=== PATIENT | female | born 1955 | race Caucasian/White ===

== ENCOUNTER → 2017-03-16 | Outpatient (CLI) | payer OTHER | LOC: FIMAGING 13:49 | PROVIDERS: ATTEND Obstetrics & Gynecology Gynecology | DX: Z12.31 Encounter for screening mammogram for malignant neoplasm of breast (principal) | CPT/HCPCS: G0202 ==

== ENCOUNTER → 2018-03-31 | Outpatient (CLI) | payer OTHER | END | disposition home or self-care (01) | LOC: FIMAGING 14:25 | PROVIDERS: ATTEND Obstetrics & Gynecology Gynecology | DX: Z12.31 Encounter for screening mammogram for malignant neoplasm of breast (principal) ==

== ENCOUNTER 2018-08-05 06:21 | Day surgery (SDC) | payer OTHER ==
--- NOTE | 2018-08-04 10:18 | CPEKG ---
Test Reason : PRE-OP TESTING HX OF SVT Blood Pressure : / mmHG Vent. Rate : 057 BPM Atrial Rate : 057 BPM P-R Int : 145 ms QRS Dur : 105 ms QT Int : 469 ms P-R-T Axes : 013 047 026 degrees QTc Int : 457 ms Sinus rhythm artifact noted Confirmed by Ortiz Osorio ([id number]) on 08/04/2018 10:18:29 AM Referred By: Maddy Rodriguez Confirmed By:Ortiz Osorio
[2018-08-05] MEDS ORDERED: MIDAZOLAM 2 MG/2 ML VIAL IVP ONE (06:47)
--- NOTE | 2018-08-05 06:48 | PDANEPAE ---
ANE Past Medical History - Cardiovascular History Hx Hypertension: No Hx Arrhythmias: Yes Hx Chest Pain: No Hx Coronary Artery / Peripheral Vascular Disease: No Hx CHF / Valvular Disease: No Hx Palpitations: No Cardiovascular History Comment: hx of SVT. hasn't seen a adjustment examiner since Dr. [place] - Pulmonary History Hx COPD: No Hx Asthma/Reactive Airway Disease: No Hx Recent Upper Respiratory Infection: No Hx Oxygen in Use at Home: No Hx Sleep Apnea: No Sleep Apnea Screening Result - Last Documented: Negative Pulmonary History Comment: lingering cough was seen by pulmonology - Neurologic History Hx Cerebrovascular Accident: No Hx Seizures: No Hx Dementia: No - Endocrine History Hx Diabetes: No Endocrine History Comment: hypothyroidism - Renal History Hx Renal Disorders: No - Liver History Hx Hepatic Disorders: No - Neurological & Psychiatric Hx Hx Neurological and Psychiatric Disorders: No - Cancer History Hx Cancer: No - Congenital Disorder History Hx Congenital Disorders: No - GI History Hx Gastrointestinal Disorders: No - Other Health History Other Health History: none - Chronic Pain History Chronic Pain: No - Surgical History Prior Surgeries: left shoulder scope. appy as child ANE Review of Systems Review of Systems: - Exercise capacity METS (RN): 4 METS ANE Patient History - Allergies Allergies/Adverse Reactions: No Known Allergies Allergy (Verified 08/05/18 07:13) - Home Medications Home Medications: ARMOUR THYROID 07/29/18 [Last Taken Unknown] Estradiol 07/29/18 [Last Taken Unknown] Levothyroxine 07/29/18 [Last Taken Unknown] Lipitor 07/29/18 [Last Taken Unknown] Progesterone 07/29/18 [Last Taken Unknown] - Smoking Hx Smoking Status: Former smoker - Family Anes Hx Family Hx Anesthesia Complications: none ANE Labs/Vital Signs - Vital Signs Height: 167.64 cm Weight: 72.575 kg ANE Physical Exam - Airway Neck exam: FROM Mallampati Score: Class 1 Mouth exam: normal dental/mouth exam - Pulmonary Pulmonary: clear to auscultation - Cardiovascular Cardiovascular: regular rate and rhythym - ASA Status ASA Status: II ANE Anesthesia Plan Anesthesia Plan: GA w LMA
[2018-08-05] MEDS ORDERED: LR 1,000 ML IV ONE (07:40)
[2018-08-05] MEDS ORDERED: PROPOFOL 200 MG/20 ML VIAL ONE (07:44)
[2018-08-05] MEDS ORDERED: fentaNYL 100 MCG/2 ML INJ ONE (07:44)
--- NOTE | 2018-08-05 07:59 | PDHPUP ---
History & Physical Update H&P update statement: This history and physical update is based on an assessment of the patient which was completed after admission or registration (within 24 hours), but prior to the surgery/procedure. H&P update: H&P reviewed & patient examined, no change in patient's condition since H&P completed
[2018-08-05] MEDS ORDERED: METOCLOPRAMIDE 10 MG/2 ML VIAL ONE (08:06)
[2018-08-05] MEDS ORDERED: KETOROLAC 30 MG/1 ML SDV ONE (08:15)
[2018-08-05] MEDS ORDERED: ONDANSETRON 4 MG/2 ML VIAL ONE (08:15)
[2018-08-05] MEDS ORDERED: DEXAMETHASONE 4 MG/ML VIAL ONE (08:15)
[2018-08-05] MEDS ORDERED: LR 500 ML IV PRN (08:37)
[2018-08-05] MEDS ORDERED: HYDROCODONE/APAP 5/325 TAB PO PRN (08:37)
[2018-08-05] MEDS ORDERED: ALBUTEROL 3 ML DEYVIAL IH PRN (08:37)
[2018-08-05] MEDS ORDERED: MEPERIDINE 25 MG/0.5 ML AMP IVP PRN (08:37)
[2018-08-05] MEDS ORDERED: fentaNYL 100 MCG/2 ML INJ IVP PRN (08:37)
[2018-08-05] MEDS ORDERED: PROMETHAZINE HCL 25 MG/ML INJ IVP PRN (08:37)
[2018-08-05] MEDS ORDERED: oxyCODONE IR 5 MG TAB PO PRN (08:37)
[2018-08-05] MEDS ORDERED: ONDANSETRON 4 MG/2 ML VIAL IVP PRN (08:37)
[2018-08-05] MEDS ORDERED: NALOXONE HCL 0.4 MG/ML INJ IVP PRN (08:37)
[2018-08-05] MEDS ORDERED: HYDROmorphONE/DILAUDID 1 MG/ML INJ IVP PRN (08:37)
--- NOTE | 2018-08-05 09:12 | POSTOPPROG ---
Post Op Note Date of Operation: 08/05/18 Surgeon: Maddy Rodriguez Anesthesiologist: Leeann Spencer MD Anesthesia: LMA Pre-op Diagnosis: PMB , uterine fibroids Post-op Diagnosis: same Indication: same Procedure: H/S myomectomy Findings: lower uterine segment fibroid Inf/Abcess present in the surg proc area at time of surgery?: No EBL: Minimal Complications: none Specimen(s): uterine fibroid tissue
--- NOTE | 2018-08-05 09:42 | POSTANESTH ---
Post Anesthetic Evaluation Cardiovascular Status: Normal, Stable Respiratory Status: Normal, Stable Level of Consciousness/Mental Status: Can Participate in Eval Pain Control: Adequate, Prn Tx Ordered Nausea/Vomiting Control: Adequate, Prn Tx Ordered Complications Possibly Related to Anesthesia: None Noted
[2018-08-05 10:11] VITALS: BP 109/67
--- NOTE | 2018-08-05 10:58 | GOP ---
[f rep st] OPERATIVE REPORT DATE OF OPERATION: 08/05/2018 SURGEON: Maddy Rodriguez MD ANESTHESIA: General with LMA. ANESTHESIOLOGIST: Leeann Spencer MD. PREOPERATIVE DIAGNOSIS: 1. Postmenopausal bleeding. 2. Submucosal fibroids. POSTOPERATIVE DIAGNOSIS: 1. Postmenopausal bleeding. 2. Submucosal fibroids. PROCEDURE PERFORMED: Hysteroscopic myomectomy. FINDINGS: There was a prominent lower uterine segment submucosal fibroid measuring about 1.5 x 2 cm; otherwise, normal tubal ostia and no other abnormal findings on CT. . ESTIMATED BLOOD LOSS: Minimal. INDICATIONS: Patient is a 62-year-old on hormone replacement therapy, has had intermittent bleeding over the last 6 to 8 months and an endometrial biopsy was negative. The bleeding has continued and u ltrasound done March 2018 showed a likely large submucosal fibroid plus blood clot in the uterus. The patient desires definitive treatment. DESCRIPTION OF PROCEDURE: With informed consent signed, patient taken to the operating room and [facility] ed under general anesthesia without complication, placed in a low dorsal lithotomy position, prepped and draped in a sterile fashion. Bladder previously emptied. Speculum placed. Cervix grasped with a tenaculum and gently dilated up to 9 mm. Hysteroscope placed using normal saline as a filling medi um. Findings as noted above. The rotary blade was placed into the hysteroscope with the Liu and N sally morcellator and resection of the fibroid done without complication. Once it was felt that the fibroid was completely flat with the myometrium and hemostasis was noted, the surgery was complete. Hysteroscope removed and net fluid deficit was 180 cc. Patient placed in supine position, awakened i n the operating room, taken to recovery room in stable condition, tolerating the procedure well. COMPLICATIONS: None. COMPLICATIONS: None. /[id number]/MODL
== END 2018-08-05 10:20 | disposition home or self-care (01) ==
LOC: FSGY 06:21
PROVIDERS: ATTEND Obstetrics & Gynecology Gynecology
PROC: 0UB98ZZ Excision of Uterus, Via Natural or Artificial Opening Endoscopic (ICD-10-PCS; principal; 2018-08-05 07:45)
DX: N95.0 Postmenopausal bleeding (principal); D25.0 Submucous leiomyoma of uterus; E03.9 Hypothyroidism, unspecified; Z79.890 Hormone replacement therapy
CPT/HCPCS: 58561; 93005; C1782; J1100; J1885; J2250; J2405; J2704; J2765; J3010